=== PATIENT | female | born 1960 | race Caucasian/White ===

== ENCOUNTER 2022-10-27 12:16 | Outpatient (REF) | payer MEDICAID, SELFPAY ==
--- NOTE | ~2022-10-27 | MM_ITS ---
EXAMINATION: MM SCREENING DIGITAL BREAST TOMOSYNTHESIS, BILATERAL CLINICAL INFORMATION: Screening. Asymptomatic. The lifetime risk of breast cancer based on the Tyrer-Cuzick Model is 6%. COMPARISON: Mammography: 05/03/2018 06/15/2014, 04/10/2013, 04/04/2012 TECHNIQUE: Digital breast tomosynthesis is performed in both the craniocaudal and mediolateral oblique views along with computer-aided detection (CAD). Synthesized 2D images are generated from the tomosynthesis. FINDINGS: There are scattered areas of fibroglandular density (ACR BI-RADS breast composition Category b). There are no significant masses, abnormal calcifications, or other abnormalities. Stromal markings anterior outer left breast are stable from multiple prior exam. No developing density or interval architectural abnormality. The axilla and skin contours are unremarkable. No significant changes from prior studies. MM/MM tomosynthesis screening BI IMPRESSION: No mammographic evidence of malignancy. ASSESSMENT: BI-RADS 2: Benign RECOMMENDATION: Routine annual mammography screening. This patient's information was entered into a reminder system with a target due date for their next mammogram.
== END 2022-10-27 12:17 | disposition home or self-care (01) ==
LOC: HO.MAMMO 12:16
PROVIDERS: PCP Internal Medicine; Visit Provider Internal Medicine
DX: Z12.31 Encounter for screening mammogram for malignant neoplasm of breast (principal)
CPT/HCPCS: 77063; 77067

== ENCOUNTER → 2024-01-28 12:45 | Outpatient (BNV) | payer MEDICAID, SELFPAY | PROVIDERS: PCP Internal Medicine; Visit Provider Radiology Diagnostic Radiology | DX: Z12.31 Encounter for screening mammogram for malignant neoplasm of breast (principal) | CPT/HCPCS: 77063; 77067 ==

== ENCOUNTER 2024-01-28 12:49 | Outpatient (REF) | payer MEDICAID, SELFPAY | END 2024-01-28 12:50 | disposition home or self-care (01) | LOC: HO.MAMMO 12:49 | PROVIDERS: PCP Internal Medicine; Visit Provider Internal Medicine | DX: Z12.31 Encounter for screening mammogram for malignant neoplasm of breast (principal) | CPT/HCPCS: 77063; 77067 ==

== ENCOUNTER 2025-02-01 12:24 | Outpatient (REF) | payer MEDICAID, SELFPAY ==
--- OUTSIDE RECORDS SUMMARY | 2025-02-01 14:55 | XMS_ITS | Continuity of Care Document ---
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 Plan of Treatment Reminders Order Date Submit Date Provider Last Modified By Organization Details Last Modified Time Details Appointments PE EST 2024 10:00A M Marko Vo PA-C Not available Not available Not available Lab None recorded. Referral None recorded. Procedures None recorded. Surgeries None recorded. Imaging None recorded. Medication Orders azelastin e 0.05 % eye drops 2024 025 [id number], [address] [place], [address], 01/10/2025 13:43:06 olopatadi ne 0.2 % eye drops 2024 025 nbarrows [id number], [address] [place], [address], 01/22/2025 14:33:47 Patient TargetsNo targets recorded. Patient InstructionsNo instructions recorded. Reason for Referral None Reported. Problems Name Problem SNOMED Code Status Onset Date Resolution Date Notes Provider Name and Address Organization Details Recorded Time Acute pharyngi tis [id number] Completed 201107/09/2014 RECORDED 07/04/20 12 1:02PM BY GINA DE LA VEGA MA, ANNOTATI ON/ADDEN DUM Lillie Garrido, [facility] [address] [facility] [address], [place], [address] , [facility] 6 10:43:27 Acute sinusiti s 91347541 Completed 201107/09/2014 RECORDED 07/04/20 12 1:03PM BY GINA DE LA VEGA MA, ANNOTATI ON/ADDEN DUM Nikole Velasquez [facility], [facility] 6 15:37:50 Anxiety disorder [id number] Completed 201107/09/2014 RECORDED 07/04/20 12 1:02PM BY GINA DE LA VEGA MA, ANNOTATI ON/ADDEN DUM Lillie Garrido, [facility] [address] [facility] [address], [place], [address] , [facility] 6 10:43:27 Screenin g for malignan t neoplasm of breast Completed 201107/09/2014 RECORDED 07/04/20 12 1:03PM BY GINA DE LA VEGA MA, ANNOTATI ON/ADDEN DUM Lillie Garrido, [facility] [address] [facility] [address], [place], [address] , [facility] [place] 6 10:43:28 Localize d adiposit y 093977101 Active Not Available [facility] 1 08:45:06 Cellulit is and abscess of hand excludin g digits Completed 201107/09/2014 RECORDED 07/04/20 12 1:03PM BY GINA DE LA VEGA MA, ANNOTATI ON/ADDEN DUM Lillie Garrido, [facility] [address] [facility] [address], [place], [address] , [facility] [place] 6 10:43:27 Disorder of lower limb 701456089 Completed 201107/09/2014 RECORDED 07/04/20 12 1:03PM BY GINA DE LA VEGA MA, ANNOTATI ON/ADDEN DUM Lillie Garrido, [facility] [address] [address], [place], [address] , [facility] [place] 6 10:43:28 Neck pain 48783986 Completed [facility]/03[facility] 15:[facility] Cough 35427204 Completed 201107/09/2014 IMPRESSI ON: FROM URI. SHE REQUESTS COUGH SYRUP; RECORDED 07/04/20 12 1:02PM BY GINA DE LA VEGA MA, CHU ON/ADDEN DUM Lillie Garrido, [facility] [address] [address], [place], [address] , [facility] [place] 6 10:43:28 Tobacco dependen ce syndrome 51675645 Completed 201307/09/2014 RECORDED 01/30/20 14 10:26AM BY MICHELLE RODGERS I, CHU ON/ADDEN DUM Lillie Garrido, [facility] [address] [address], [place], [address] , [facility] [place] 6 10:43:27 Elevated blood-pr essure reading without diagnosi s of hyperten zuly 552427635 Completed 201107/09/2014 RECORDED 07/04/20 12 1:02PM BY GINA DE LA VEGA MA, CHU ON/ADDEN DUM Lillie Garrido, [facility] [address] [address], [place], [address] , [facility] [place] 6 10:43:28 Family history of ischemic heart disease 005697629 Completed 201207/09/2014 RECORDED 01/03/20 13 2:39PM BY SARAN FERNANDES MA, CHU ON/ADDEN DUM Lillie Garrido, [facility] [address] [facility] [address], [place], [address] , [facility] [place] 6 10:43:28 Adult health examinat ion Completed 201207/09/2014 RECORDED 08/14/20 13 10:10AM BY SARAN FERNANDES MA, ANNOTATI ON/ADDEN DUM Lillie Garrido, [facility] [address] [facility] [address], [place], [address] , [facility] [place] 6 10:43:28 Hyperhid rosis 804352447 Completed 201107/09/2014 RECORDED 07/04/20 12 1:02PM BY GINA DE LA VEGA MA, ANNOTATI ON/ADDEN DUM Lillie Garrido, [facility] [address] [address], [place], [address] , [facility] [place] 6 10:43:27 Malaise and fatigue 005703430 Completed 201107/09/2014 RECORDED 07/04/20 12 1:03PM BY GINA DE LA VEGA MA, CHU ON/ADDEN ASPEN Garrido, [facility] [address] [address], [place], [address] , [facility] 6 10:43:27 Acute pain 276623051 Completed 201107/09/2014 RECORDED 07/04/20 12 1:02PM BY GINA DE LA VEGA MA, ANNOTATI ON/ADDEN DUM Lillie Garrido, [facility] [address] [address], [place], [address] , [facility] [place] 6 10:43:27 Otitis media 50973437 Completed 201107/09/2014 RECORDED 07/04/20 12 1:02PM BY GINA DE LA VEGA MA, ANNOTTREMAINE ON/ADDEN DUM Lillie Garrido, [facility] [address], [place], [address] , [facility] [place] 6 10:43:27 Proteinu olayinka 06904549 Completed 201107/09/2014 RECORDED 07/04/20 12 1:03PM BY GINA DE LA VEGA MA, ANNOTATI ON/ADDEN DUM Lillie Garrido, [facility] [address], [place], [address] , [facility] [place] 6 10:43:28 Pain in thoracic spine 859173000 Completed 12/28/2016 Nikole hobbs, [facility] 7 13:18:40 Acute sinusiti s 20234162 Completed 11/03/2016 Nikole hobbs, [facility] 6 15:37:50 Allergic rhinitis 54496138 Completed 11/03/2016 Lillie Garrido, [facility] [address] [facility] [address], [place], [address] , [facility] [place] 5 11:30:56 Fatigue 29447735 Completed 11/03/2016 Nikole hobbs, [facility] 6 15:38:22 Insomnia 756251380 Active Not Available [facility] 1 08:45:07 Anxiety 36494944 Active Not Available [facility] 1 08:45:07 Lactic acidosis 67987100 Active Not Available [facility] 1 08:45:07 Acute kidney injury 07257467 Completed 12/28/2016 Nikole hobbs, [facility] 7 13:18:44 Attentio n deficit hyperact ivity disorder , predomin antly inattent tam type 73295995 Active Not Available [facility] 1 08:45:06 Eustachi an tube disorder 32177102 Completed 08/23/2019 HETAL Lynn, [facility] 9 10:26:46 Panic disorder 588997911 Completed 06/19/2020 Kaela Vo PA-C [address] [facility] [address], [place], [address] , [facility] [place] 0 09:41:16 Hematoch ezia 583905074 Active Not Available [facility] 1 08:45:06 Bilatera l hearing loss 82258808 Active Not Available [facility] 1 08:45:07 Red eye Completed 11/03/2016 Nikole hobbs, [facility] 6 15:38:26 Pain in eye 03461911 Completed 11/03/2016 Nikole hobbs, [facility] 6 15:38:09 Obesity 093663303 Active Not Available [facility] 1 08:45:06 Finding of tobacco use and exposure 131569793 Active Not Available [facility] 1 08:45:06 Ulcer of montalvo 651460393 Active Not Available [facility] 1 08:45:07 Peripher al venous insuffic iency 66248168 Active 2019 Not Available [facility] 1 08:45:07 Dysfunct ion of eustachi an tube 81419745 Active 2019 Not Available [facility] 1 08:45:06 Exposure to SARS-CoV -2 Completed 12/12/2020 Removal Reason: Problem added by user madhav de la vega from the COVID-19 watch flag HETAL Lynn, [facility] 1 14:47:30 Asthma 888600429 Active 2021 MANUEL Green [address] [facility] [address], [place], [address] , [facility] 2 15:11:37 Bronchit is 84703613 Active 2021 Lillie [facility]arrido [facility] [address] [facility] [address], [place], [address] , [facility] 2 15:18:08 Headache 23215259 Active 2021 MANUEL Green [address] [facility] [address], [place], [address] , [facility] [place] 2 15:19:43 Essentia l hyperten zuly 87605839 Active Gina hunter MA null, [facility] 3 09:34:17 Family history of Cardiova scular disease 061209932 Completed 202212/15/2023 Marko Vo PA-C [address] [facility] [address], [place], [address] , [facility] [place] 4 19:58:03 Vitreous hemorrha ge 19663953 Active 2022 Marko Vo PA-C [address] [facility] [address], [place], [address] , [facility] 3 11:56:58 Age related macular degenera tion 593314532 Active 2022 Marko Vo PA-C [address] [facility] [address], [place], [address] , [facility] [place] 3 11:57:04 Anterior chest wall pain 007786375 Active 2022 MANUEL Green [address] [facility] [address] [facility][note 2], [place], [address] , [facility] [place] 3 10:47:50 Postconc ussion syndrome 17889584 Active 2023 Marko Vo PA-C [address] [facility] [address], [place], [address] , [facility] [place] 4 19:55:49 Age related macular degenera tion 936433716 Completed 202312/15/2023 Marko Vo PA-C [address] [facility] [address], [place], [address] , [facility] [place] 4 19:57:27 CT of head abnormal 706213131 Active 2023 Marko Vo PA-C [address] [facility] [address], [place], [address] , [facility] [place] 4 12:25:44 History of SARS-CoV -2 17382556049 3081665 Active 2023 Marko Vo PA-C [address] [facility] [address], [place], [address] , [facility] [place] 4 15:24:39 Severe recurren t major depressi on without psychoti c features 58420074 Active 2023 Makenna hobbs, [facility] 4 16:32:19 Allergic rhinitis 66648457 Active 2024 MANUEL Green [address] [facility] [address], [place], [address] , [facility] [place] 5 11:30:55 Acute pharyngi tis 901123369 Completed 201106/12/2014 RECORDED 07/04/20 12 1:02PM BY GINA DE LA VEGA MA, ANNOTATI ON/ADDEN DUM MANUEL Green [address] [address], [place], [address] , [facility] 6 10:43:27 Acute sinusiti s 00173762 Completed 201106/12/2014 RECORDED 07/04/20 12 1:03PM BY GINA DE LA VEGA MA, ANNOTATI ON/ADDEN DUM Nikole hobbs, [facility] 6 15:37:50 Anxiety disorder 469408696 Completed 201106/12/2014 RECORDED 07/04/20 12 1:02PM BY GINA DE LA VEGA MA, ANNOTATI ON/ADDEN DUM Lillie Garrido, [facility] [address] [facility] [address], [place], [address] , [facility] [place] 6 10:43:27 Screenin g for malignan t neoplasm of breast Completed 201106/12/2014 RECORDED 07/04/20 12 1:03PM BY GINA DE LA VEGA MA, EFRAINATI ON/ADDEN DUM Lillie Garrido, [facility] [address] [facility] [address], [place], [address] , [facility] 6 10:43:28 Cellulit is and abscess of hand excludin g digits Completed 201106/12/2014 RECORDED 07/04/20 12 1:03PM BY GINA DE LA VEGA MA, CHU ON/ADDEN DUM Lillie Garrido, [facility] [address] [facility] [address], [place], [address] , [facility] [place] 6 10:43:27 Disorder of lower limb 418092527 Completed 201106/12/2014 RECORDED 07/04/20 12 1:03PM BY GINA DE LA VEGA MA, ANNOTATI ON/ADDEN DUM Lillie Garrido, [facility] [address] [facility] [address], [place], [address] , [facility] 6 10:43:28 Cough 03382913 Completed 201106/12/2014 IMPRESSI ON: FROM URI. SHE REQUESTS COUGH SYRUP; RECORDED 07/04/20 12 1:02PM BY GINA DE LA VEGA MA, CHU ON/ADDEN DUM Lillie Garrido, [facility] [address] [facility] [address], [place], [address] , [facility] 6 10:43:28 Tobacco dependen ce syndrome 80981492 Completed 201306/12/2014 RECORDED 01/30/20 14 10:26AM BY MICHELLE RODGERS I, CHU ON/ADDEN DUM Lillie Garrido, [facility] [address] [facility] [address], [place], [address] , [facility] [place] 6 10:43:27 Tobacco dependen ce syndrome 05269233 Active Not Available [facility] 1 08:45:07 Elevated blood-pr essure reading without diagnosi s of hyperten zuly 945748528 Completed 201106/12/2014 RECORDED 07/04/20 12 1:02PM BY GINA DE LA VEGA MA, CHU ON/ADDEN DUM Lillie Garrido, [facility] [address] [address], [place], [address] , [facility] 6 10:43:28 Essentia l hyperten zuly 12737198 Completed 08/23/2019 HETAL Lynn, [facility] 3 09:34:17 Essentia l hyperten zuly 17303837 Completed 201206/12/2014 RECORDED 01/28/20 13 10:21AM BY SARAN FERNANDES MA, OFFICE VISIT HETAL Lynn, [facility] 3 09:34:17 Family history of ischemic heart disease 415119135 Completed 201206/12/2014 RECORDED 01/03/20 13 2:39PM BY SARAN FERNANDES MA, CHU ON/ADDEN DUM Lillie Garrido, [facility] [address] [facility] [address], [place], [address] , [facility] [place] 6 10:43:28 Adult health examinat ion Completed 201206/12/2014 RECORDED 08/14/20 13 10:10AM BY SARAN FERNANDES MA, CHU ON/ADDEN DUM Lillie Garrido, [facility] [address] [address], [place], [address] , [facility] 6 10:43:28 Hyperhid rosis 647392572 Completed 201106/12/2014 RECORDED 07/04/20 12 1:02PM BY GINA DE LA VEGA MA, EFRAINATI ON/ADDEN DUM Lillie Garrido, [facility] [address] [facility] [address], [place], [address] , [facility] 6 10:43:27 Displace ment of interver tebral disc without myelopat hy 26773527 Active Not Available [facility] 1 08:45:06 Pure hypercho lesterol emia 952359156 Active Not Available [facility] 1 08:45:06 Hyperlip idemia 55298160 Active Not Available [facility] 1 08:45:07 Impaired fasting glycemia 184163265 Active Not Available [facility] 1 08:45:06 Displace ment of lumbar interver tebral disc without myelopat hy 42567036 Active Not Available [facility] 1 08:45:07 Lyme disease 85842004 Active Not Available [facility] 1 08:45:06 Malaise and fatigue 527760472 Completed 201106/12/2014 RECORDED 07/04/20 12 1:03PM BY GINA DE LA VEGA MA, CHU ON/ADDEN ASPEN Garrido, [address] [facility] [address], [place], [address] , [facility] 6 10:43:27 Acute pain 396899309 Completed 201106/12/2014 RECORDED 07/04/20 12 1:02PM BY GINA DE LA VEGA MA, CHU ON/ADDRENATE Garrido, [facility] [address] [facility] [address], [place], [address] , [facility] 6 10:43:27 Otitis media 81149945 Completed 201106/12/2014 RECORDED 07/04/20 12 1:02PM BY GINA DE LA VEGA MA, CHU ON/AGUSTIN Garrido, [facility] [address] [facility] [address], [place], [address] , [facility] 6 10:43:27 Panic disorder without agorapho neo 43105454 Active Not Available [facility] 08:45:06 Proteinu olayinka 07795708 Completed 201106/12/2014 RECORDED 07/04/20 12 1:03PM BY GINA DE LA VEGA MA, CHU ON/AGUSTIN Garrido, [facility] [address] [facility] [address], [place], [address] , [facility] 6 10:43:28 Thyrotox icosis 19466454 Active Not Available [facility] 1 08:45:06 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 Procedures Surgical History Date Name Laterality Status Provider Name and Address Organization Details Recorded Time 04/10/20 24 craniectomy completed Laura Weiss [facility] 04/10/2024 10:01:48 04/10/20 24 excision of lesion of cranium completed Laura Weiss [facility] 04/10/2024 10:02:14 04/10/20 24 cranioplasty completed Laura Weiss [facility] 04/10/2024 10:02:22 01/28/20 24 Most Recent Mammogram completed Laura Weiss [facility] 02/14/2024 09:29:28 04/15/20 23 Date of Last Pap Smear completed Laura Weiss [facility] 04/04/2024 08:34:39 07/21/20 21 Date of Last Colonoscopy completed Malena Aldair [facility] 06/20/2021 14:47:59 06/18/20 21 Colonoscopy completed Malena Aldair [facility] 06/20/2021 14:48:13 01/03/20 20 Mammogram screening completed Ruma Money [facility] 01/03/2020 16:08:31 06/29/19 98 tympanostomy completed Gina walters [place] [facility] 08/23/2019 10:36:38 11/29/18 87 Appendectomy completed Gina walters MA [facility] 07/11/2014 08:52:32 Imaging Results None recorded. Procedure Notes None recorded. Medical Equipment None Reported. Allergies Allergen ID Allergen Name Allergen Category Reaction Reaction Severity Criticality Documentation Date Start Date Code Code System Note Provider Name and Address Organization Details Recorded Time 16668 Bactrim medicatio n myalgias (muscle pain) Not available Not available 01/22/2020 30424 9 RxNorm Marko Vo PA-C [address], [place], [address], [facility] 0 11:10:56 5343 Augmentin medicatio n Not available Not available Not available 06/12/20142009 07422 2 RxNorm dehyd ratio n, ketoa cidos is -- hospi taliz ed x 3 days -- has vee ated amox her whole life Not Available [facility] 1 08:45:07 Medications Name Sig Start Date Stop Date Status Note LastModified by Organization Details LastModified Time Prescript ion - Prior Authoriza tion Request 04/28 completed Not Available Not Available Not Available cyclobenz aprine 10 mg tablet TAKE 1 TABLET 3 TIMES A DAY BY MOUTH DIRECTED FOR 10 DAYS FOR MUSCLE SPASM. 12/15 completed Not Available Not Available Not Available Augmentin 875 mg-125 mg tablet Take 1 tablet every 12 hours by oral route as directed for 10 days. 11/17 completed Not Available Not Available Not Available azelastin e 0.05 % eye drops INSTILL 1 DROP INTO AFFECTED EYE(S) BY OPHTHALM IC ROUTE 2 TIMES PER DAY 2024 active Not Available Not Available Not Avai lable prednison e 10 mg tablet 40mg x 2 days, 30mg x 2 days, 20mg x 2 days, 10mg x 2 09/20 completed Not Available Not Available Not Available doxycycli ne hyclate 100 mg capsule Take 1 capsule twice a day by oral route for 7 days. 02/21 completed Not Available Not Available Not Available nicotine 14 mg/24 hr daily transderm al patch APPLY 1 PATCH EVERY DAY 06/19 completed Not Available Not Available Not Available cetirizin e 10 mg tablet Take 1 tablet every day by oral route for 30 days. 2015 active Not Available Not Available Not Avai lable atorvasta tin 10 mg tablet TAKE 1 TABLET BY MOUTH EVERYDAY AT BEDTIME active Not Available Not Available No t Available lisinopri l 20 mg-hydroc hlorothia zide 12.5 mg tablet Take 1 tablet every day by oral route for 30 days. 04/28 completed Not Available Not Available Not Available azithromy marysol 250 mg tablet TAKE 2 TABLETS BY MOUTH TODAY, THEN TAKE 1 TABLET DAILY FOR 4 DAYS 10/27 completed Not Available Not Available Not Available alprazola m 1 mg tablet TAKE 1 TABLET BY MOUTH EVERY DAY NEEDED FOR 20 DAYS active Not Available Not Available No t Available valacyclo vir 1 gram tablet TAKE 2 TABLETS BY MOUTH EVERY 12 HOURS FOR 1 DAY 06/19 completed Not Available Not Available Not Available meloxicam 15 mg tablet TAKE 1 TABLET EVERY DAY BY MOUTH DIRECTED FOR INFLAMMA TION. 01/04 completed Not Available Not Available Not Available lisinopri l 20 mg tablet DAILY 05/16 completed RECORDED 05/16/20 10 3:07PM BY LUIS ANGEL VASQUEZ MD, ANNOTATI ON/AGUSTIN LOUISE; Not Available Not Available Not Available Medrol (Jeremy) 4 mg tablets in a dose pack Take 1 package by oral route. 12/08 completed Not Available Not Available Not Available methylphe nidate 5 mg tablet TAKE 1 TABLET BY MOUTH TWICE A DAY DIRECTED active Not Available Not Available No t Available prednison e 20 mg tablet Take 3 tablets every day by oral route for 6 days. 02/26 completed Not Available Not Available Not Available simvastat in 10 mg tablet Take 10 mg by oral route. 06/19 completed Not Available Not Available Not Available peg-elect rolyte solution 420 gram oral solution DRINK 240 ML BY MOUTH EVERY 15 MINUTES 08/01 completed Not Available Not Available Not Available tramadol 50 mg tablet Take 1 tablet every 6 hours by oral route as needed. 12/08 completed Not Available Not Available Not Available amoxicill in 500 mg tablet TWO TIMES DAILY 04/29 completed Not Available Not Available Not Available lidocaine -prilocai ne 2.5 %-2.5 % topical cream APPLY THICK LAYER TO AFFECTED LEG 2 HOURS BEFORE PROCEDUR E. LOOSELY COVER WITH PLASTIC WRAP. 01/28 completed Not Available Not Available Not Available oxycodone -acetamin ophen 5 mg-325 mg tablet THREE TIMES DAILY, NEEDED 01/13 completed RECORDED 01/28/20 13 10:21AM BY LUIS ANGEL VASQUEZ MD, MEDICATI ON AUTO-CHRIS CTIVATIO N; Not Available Not Available Not Available alprazola m 0.5 mg tablet Take 1 tablet every day by oral route for 20 days. 11/11 completed Not Available Not Available Not Available Fluticaso ne Propionat e (Inhal) 50 mcg/BLIST inhl powd DAILY 02/09 completed RECORDED 02/15/20 10 1:34PM BY REED PIKEC, MEDICATI ON AUTO-CHRIS CTIVATIO N; Not Available Not Available Not Available amoxicill in 875 mg tablet TAKE 1 TABLET BY MOUTH EVERY 12 HOURS DIRECTED FOR 7 DAYS 01/10 completed Not Available Not Available Not Available citalopra m 20 mg tablet TAKE 1 AND 1/2 TABLETS BY MOUTH ONCE DAILY active Not Available Not Available No t Available ciproflox acin 0.3 % eye drops INSTILL 1 DROP INTO AFFECTED EYE(S) BY OPHTHALM IC ROUTE EVERY 2 HOURSWHI LE AWAKE FOR 2 DAYS THEN 1 DROP EVERY 4 HRS WHILE AWAKE FOR 5 DAYS 2021 active Not Available Not Available Not Avai lable Xanax 0.25 mg tablet Take 1 tablet twice a day by oral route as needed for 30 days. 08/30 completed Not Available Not Available Not Available simvastat in 20 mg tablet TAKE 1 TABLET BY MOUTH EVERY DAY 2013 completed Not Available Not Available Not Available acyclovir 5 % topical ointment APPLY TO THE AFFECTED AREA(S) BY TOPICAL ROUTE EVERY 3 HOURS 5 TIMES PER DAY 04/28 completed Not Available Not Available Not Available neomycin- polymyxin -dexameth 3.5 mg/mL-10, 000 unit/mL-0 .1% eye drops INSTILL 2 DROPS IN AFFECTED EYE 3 TIMES A DAY FOR 10 DAYS 12/31 completed Not Available Not Available Not Available lisinopri l 5 mg tablet Take 5 mg by oral route. 02/21 completed Not Available Not Available Not Available lisinopri l 10 mg-hydroc hlorothia zide 12.5 mg tablet TAKE 1 TABLET BY MOUTH EVERY DAY 2024 active Not Available Not Available Not Avai lable ibuprofen 600 mg tablet TAKE 1 TABLET BY MOUTH THREE TIMES A DAY NEEDED active Not Available Not Available No t Available levofloxa marysol 500 mg tablet Take 1 tablet every day by oral route with meals for 7 days. 09/20 completed Not Available Not Available Not Available fluticaso ne propionat e 50 mcg/actua tion nasal spray,[facility] [employer] SPRAY 1 SPRAY INTO EACH NOSTRIL EVERY DAY 10/27 completed Not Available Not Available Not Available doxycycli ne hyclate 100 mg tablet TAKE 1 TABLET BY MOUTH TWICE A DAY FOR 10 DAYS 01/28 completed Not Available Not Available Not Available loratadin e 10 mg tablet TAKE 1 TABLET BY MOUTH EVERY DAY DIRECTED active Not Available Not Available No t Available nicotine 7 mg/24 hr daily transderm al patch Apply 1 patch every day by transder mal route. 06/19 completed Not Available Not Available Not Available oxycodone 5 mg tablet 01/28 completed Not Available Not Available Not Available Bactrim DS 800 mg-160 mg tablet Take 1 tablet every 12 hours by oral route for 7 days. 02/21 completed Not Available Not Available Not Available Ritalin LA 20 mg capsule,e xtended release Take 1 capsule 3 times a day by oral route as directed . completed Not Available Not Available Not Available Zithromax TRI-JEREMY 500 mg tablet Take 1 tablet every day by oral route for 3 days. 07/14 completed Not Available Not Available Not Available Guiatuss EVERY 4 HRS NEEDED FOR COUGH 04/26 completed RECORDED 04/30/20 12 10:47AM BY WINDY ENRIQUEZ, MEDICATI ON AUTO-CHRIS CTIVATIO N;CAUTIO N DROWSINE SS Not Available Not Available Not Available Chantix Starting Month Jeremy 0.5 mg (11)-1 mg (42) tablets in dose pack 09/10 completed RECORDED 09/10/20 11 11:46AM BY SU MENA MA, OFFICE VISIT; DIRECTED Not Available Not Available Not Available ProAir HFA 90 mcg/actua tion aerosol inhaler Inhale 2 puffs every 4-6 hours by inhalati on route as needed for 16 days. active Not Available Not Available No t Available olopatadi ne 0.2 % eye drops INSTILL 1 DROP INTO AFFECTED EYE(S) BY OPHTHALM IC ROUTE ONCE DAILY 2024 active Not Available Not Available Not Avai lable Gavilyte- C 240 gram-22.7 2 gram-6.72 gram-5.84 gram oral solution USE DIRECTED PRIOR TO COLONOSC OPY 08/01 completed Not Available Not Available Not Available Vitals Date Recorded Body height Body mass index (BMI) Body weight Heart rate Oxygen saturation Oxygen saturation in Arterial blood by Pulse oximetry Body temperature Systolic blood pressure Diastolic blood pressure Provider Name and Address Organization Details Last Updated DateTime 5 157.48 cm 27.8 kg/m2 42835.0 4 g 76 /min 96 % 96 % 97.8 [degF] 127 mm[Hg] 80 mm[Hg] Bri vaz MA MD - [facility] [place] 5 13:11:44 Social History Question Answer Notes LastModified by Organizat ion Details LastModified Time Tobacco Smoking Status Current Every Day Smoker has tried nicotine gum in past HETAL Akhtar, [facility] 08/23/2019 10:35:01 Do You Have An Advance Directive? No Information not available 04/28/2018 What Is Your Level Of Alcohol Consumption? Occasional Socially Information not available 08/23/2019 Is Blood Transfusion Acceptable In An Emergency? Yes Information not available 02/12/2021 What Is Your Level Of Caffeine Consumption? None Information not available 04/28/2018 How Much Tobacco Do You Chew? None Information not available 04/28/2018 Are You Currently Employed? No Information not available 04/28/2018 What Type Of Diet Are You Following? REGULAR Information not available 07/11/2014 Which Illicit Or Recreational Drugs Have You Used? Marijuana Information not available 08/23/2019 Do You Or Have You Ever Used E-cigarettes Or Vape? 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 With Others Daughter (Justyna) [email or web address] Information not available 01/27/2016 Do You Take Precautions To Prevent Distracted Driving? Yes Information not available 08/23/2019 How Often Do You Need To Have Someone Help You When You Read Instructions, Pamphlets, Or Other Written Material From Your Doctor Or Pharmacy? Never Information not available 08/23/2019 Have You Served In The ? No Information not available 08/23/2019 Have You Or Anyone In Your Household Had Any Of The Following Symptoms In The Last 14 Days: Sore Throat, Cough, Chills, Body Aches For Unknown Reasons, Shortness Of Breath For Unknown Reasons, Loss Of Smell, Loss Of Taste, Fever At Or Greater Than 100 Degrees Fahrenheit? No Information not available 01/31/2021 Are You Or Anyone In Your Household A Health Care Provider Or Emergency Responder? No Information not available 06/19/2020 To The Best Of Your Knowledge Have You Been In Close Proximity To Any Individual Who Tested Positive For COVID-19? No Information not available 01/31/2021 *AWV ONLY* Are You Presently Prescribed Opioid Medication By PCP Or Specialist? If YES -Provider Assess The Benefit For Other, Non-opioid Pain Therapies Instead, Even If The Patient Does Not Have OUD But Is Possibly At Risk. No Information not available 02/12/2021 Have You Recently Traveled To A COVID-19 High Risk Area Or Gathering In The Last 10 Days? No Information not available 01/31/2021 What Was The Date Of Your Most Recent Tobacco Screening? 04/03/2024 [email or web address] Information not available 04/03/2024 How Many Children Do You Have? 2 Justyna And Anival Information not available 04/28/2018 What Is Your Current Pack Years? 30ormorepacky ears Information not available 02/12/2021 Seat Belts Used Routinely Yes Information not available 08/23/2019 Smoke Alarm In Home Yes Information not available 04/28/2018 At What Age Did You Start Smoking Tobacco? 16 Long Time Information not available 08/23/2019 Are You Passively Exposed To Smoke? Yes Information not available 04/28/2018 Do You Or Have You Ever Used Smokeless Tobacco? Never Used Smokeless Tobacco Information not available 08/23/2019 How Much Tobacco Do You Smoke? 0.25 PPD Information not available 06/19/2020 Do You Use Any Illicit Or Recreational Drugs? No Information not available 04/01/2023 Do You Use Sunscreen Routinely? Yes Information not available 02/12/2021 How Many Years Have You Smoked Tobacco? 44 Information not available 06/19/2020 Do You Or Have You Ever Used Any Other Forms Of Tobacco Or Nicotine? No Information not available 04/01/2023 Sex: Unknown Functional Status Question Answer Note LastModified by Organizat ion Details LastModified Time Are you able to walk? YESWOREST Information not available 04/01/2023 Are you able to care for yourself? Yes Information not available 07/11/2014 What is your exercise level? Occasional Information not available 04/28/2018 Mental Status None recorded. Family History Relationship Description Onset Age of this Age Resolved Age Notes LastModified by Organization Details LastModified Time Father Myocardial infarction 45 60 [email or web address] Not available 11/07 10:56:17 Father Essential hypertension [email or web address] Not available 01/27/2016 17:02:06 Mother Primary malignant neoplasm of urinary bladder 75 [email or web address] Not available 17:02:06 Mother Essential hypertension [email or web address] Not available 01/27/2016 17:02:06 Brother Myocardial infarction 57 [email or web address] Not available 17:02:06 Brother Essential hypertension mdalessandro Not available 01/27/2016 17:02:06 Brother Coronary arterioscler osis mdalessandro Not available 17:02:06 Sister Essential hypertension mdalessandro Not available 01/27/2016 17:02:06 Sister Coronary arterioscler osis mdalessandro Not available 17:02:06 Medical History Condition Response Anxiety Disorder Y Hypertension Y Depression Y High Cholesterol Y Gynecological History Statement/Question Response Date of Last Pap Smear 04/15/2023 Date of Last Colonoscopy 06/18/2021 Most Recent Mammogram 01/28/2024 Obstetrics History GPAL:G 0 P 0 0 0 0 Immunizations Vaccine Type Date Status Note Provider Name and Address Organization Details Recorded Time COVID-19, mRNA, LNP-S, PF, 100 mcg/0.5mL dose or 50 mcg/0.25mL dose 05/07/20 21 completed [facility] 08/18/2022 10:30:17 COVID-19, mRNA, LNP-S, PF, 100 mcg/0.5mL dose or 50 mcg/0.25mL dose 04/07/20 21 completed HETAL [facility] [place] 08/18/2022 10:30:17 COVID-19, mRNA, LNP-S, PF, 100 mcg/0.5mL dose or 50 mcg/0.25mL dose 04/07/20 21 completed HETAL Eugene, [facility] 11/10/2022 13:08:16 Tdap 05/30/20 18 completed HETAL Sun, [facility] 08/18/2022 10:30:17 Influenza, split virus, quadrivalent, PF 12/28/19 17 completed HETAL Sun, [facility] 08/18/2022 10:30:17 COVID-19, mRNA, LNP-S, PF, 100 mcg/0.5mL dose or 50 mcg/0.25mL dose 04/07/20 21 completed HETAL [place], [facility] 11/10/2022 13:08:16 Td (adult), 2 Lf tetanus toxoid, preservative free, adsorbed 06/28/20 07 completed HETAL Crooks, [facility] 05/09/2021 13:31:44 Influenza, split virus, quadrivalent, PF 02/13/20 21 cancelled patient objection Marko Vo PA-C [id number], [address], [facility] [place] 02/12/2021 16:19:58 Past Encounters Encounter ID Performer Location Encounter Start Date Encounter Closed Date Diagnosis/Indication Diagnosis SNOMED-CT Code Diagnosis ICD10 Code Diagnosis Note [id number] Makenna Gaston Main Office [address] [id number] 01/10/2025 12:58:33 01/10/2025 13:35:44 Acute conjunctivitis 29028549 H10.30 -Will send ming alvarado script cancelled. -Warm compress advised.-A dvised regular follow up with optho. Pterygium of right eye 2343891297 H11.001 Advised regular follow up with optho. Subconjunc tival hemorrhage of right eye 7417694433 H11.31 Avoid anything that increases pressure. Health Concerns Section Related Observation LastModified by Organization Detai ls LastModified Time None Recorded Concern Status LastModified by Organization Details LastModified Time None Recorded Payers Encounter Date Sequence Insurance Name Policy Number Policy Jeffrey Covered Member ID Jeffrey Member ID Guarantor Name 01/10/2025 1 MEDICAID-[place]: [facility] Lia Bustos [id number] Lia Silviaromeo Notes Date Note Type Note Provider Name and Address Organization Details Recorded Time 01/10/2025 text/html Red EyeReported bypatient.Location :right Quality:itching Duration:3 days ago Onset/Timing:first episode Associated Symptoms:normal vision; no sensitivity to light; no eye pain; no foreign body sensation in eyes; no mucopurulent discharge;watery discharge from the eyes Makenna hobbs [facility] 01/22/2025 14:33:50 OBGyn Episode No OBEpisode recorded.
--- OUTSIDE RECORDS SUMMARY | 2025-02-01 14:55 | XMS_ITS | Data Portability ---
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 Patient consented to telephone visit Patient was located in the [facility]. Provider was located in the office. No other persons participated in the telemedicine visit except for the patient unless otherwise indicated here. {{}} Total time of visit was 23 minutes. pmadden Not available 07/11/2024 15:20:34 10/05/2024 10/05/2024 This service was provided using telemedicine. Patient consented to video & audio visit Patient was located in the [facility]. Provider was located in the office. No other persons participated in the telemedicine visit except for the patient unless otherwise indicated here. {{}} Total time of visit was 10 minutes. [email or web address] Not available 10/05/2024 15:16:34 Plan of Treatment Reminders Order Date Submit Date Provider Last Modified By Organization Details Last Modified Time Details Appointments PE EST 2024 10:00A M Josue Vo PA-C Not available Not available Not available Lab HbA1c (hemog lobin A1c), blood 2023 024 [facility] (Centralized Electronic Ordering - All Locations), Patient Can Go To The Location Of Their Choice, 07/12/2024 14:06:59 vitami n D, 25-hyd brian, total, serum 2023 024 [facility], [address], [place], [address], 07/12/2024 14:06:59 TSH, ultra- sensit tam, serum 2023 024 [facility] (Centralized Electronic Ordering - All Locations), Patient Can Go To The Location Of Their Choice, 07/12/2024 14:07:00 CBC w/ auto diff 2023 024 [facility] (Centralized Electronic Ordering - All Locations), Patient Can Go To The Location Of Their Choice, 07/12/2024 14:06:57 CMP, serum or plasma 2023 024 [facility] (Centralized Electronic Ordering - All Locations), Patient Can Go To The Location Of Their Choice, 07/12/2024 14:06:58 CMP, serum or plasma 2023 024 [email or web address] [facility] (Centralized Electronic Ordering - All Locations), Patient Can Go To The Location Of Their Choice, 11/01/2024 17:15:45 lipid panel, serum 2023 024 [email or web address] [facility] (Centralized Electronic Ordering - All Locations), Patient Can Go To The Location Of Their Choice, 11/01/2024 17:15:32 HbA1c (hemog lobin A1c), blood 2023 024 [email or web address] [facility] (Centralized Electronic Ordering - All Locations), Patient Can Go To The Location Of Their Choice, 11/01/2024 17:15:14 vitami n D, 25-hyd brian, total, serum 2023 024 [email or web address] [facility], [address], [place], [address], 07/03/2024 08:55:25 Referral psychi atrist referr al - Medica tion consul tation with Reggie Staples MD 2023 024 alba Staples MD, [address] [place], [address], 08/04/2024 16:33:14 nutrit ionist /dieti lupe referr al 2023 024 [email or web address] Not available 04/03/2024 12:08:11 Procedures None record ed. Surgeries None record ed. Imaging XR, chest, 2 view 2023 024 [facility] (Radiology), [address] [place], [address], 07/11/2024 16:46:59 LDCT, chest, for lung cancer screen ing - -The fani loomis does not have lung cancer or signs of lung cancer at this time.- Fani loomis has not had a chest CT in the last 12 months . *SHARE D DECISI ON MAKING *I have discus sed the benefi ts and risks of lung cancer screen ing in compli ance with [facility] shared decisi on making guidel сергей includ ing early detect ion, radiat ion exposu re, false negati ve rates, false positi ve rates, over-d iagnos is, incide ntal findin gs, impact of comorb iditie s and the abilit y or willin gness to underg o diagno sis and treatm ent if someth ing concer holden is found. I have review ed with the fani t the import ance of abstin ence if a former smoker , and import ance of smokin g cessat ion if a curren t smoker . I have furnis hed the fani t with inform ation and resour michelle availa ble to quit smokin g if approp riate. 2023 024 cristino [facility], [address] [place], [address], 10/23/2024 10:07:29 Medication Orders azelas jason 0.05 % eye drops 2024 025 [facility]0859, [address] [place] [address], [address], 01/10/2025 13:43:06 olopat adine 0.2 % eye drops 2024 025 [email or web address] [address] [place] [address], [address], 01/22/2025 14:33:47 doxycy jimenez hyclat e 100 mg tablet 2023 024 [facility], [address] [place] [address], [address], 10/06/2024 16:23:53 atorva statin 10 mg tablet 2023 024 [facility] [address] [place] [address], [address], 07/13/2024 14:25:36 methyl phenid ate 5 mg tablet 2023 024 [facility] [address] [place] [address], [address], 07/13/2024 14:31:52 alpraz olam 1 mg tablet 2023 024 [facility], [address] [place] [address], [address], 04/03/2024 11:33:13 methyl phenid ate 5 mg tablet 2023 024 [facility], [address] [place] [address], [address], 04/03/2024 11:33:14 methyl phenid ate 5 mg tablet 2023 024 [facility], [address] [place] [address], [address], 04/03/2024 11:33:12 methyl phenid ate 5 mg tablet 2023 024 [facility]1753, [address] [facility], [place], [address], 04/03/2024 11:33:12 Patient Targets Encounter Date Encounter Id Patient Goals Patient Target Last Modified By Organization Details Last Modified Time 04/03/2024 [id number] 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 goal of Blood Pressure 140 / 90 Not available Not available Not available [facility] goal of Exercise level Not available Not available Not available [facility] goal of Tobacco Smoking Status Not available Not available Not available 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 goal of Excess Body Weight Loss % 5 Not available Not available Not available Ongoing of LDL Direct <100 Not available Not available Not available Ongoing of LDL Direct yearly Not available Not available Not available Pt advised and agrees to work on self-monitoring behaviors; begin an appropriate diet for weight loss (such as a low carbohydrate diet), to do moderate exercise (such as walking) for approximately 150 minutes per week; and to identify desirable and timely rewards that will reinforce achievement of specific weight loss goals.Pt advised and agrees to eat a low salt low fat diet; to do moderate exercise (such as walking) 150 minutes per week; to limit alcohol intake (goal of 2 drinks per day or less for men or 1 for woman). and to monitor dietary sodium. Will monitor home blood pressures and bring readings to appointments. Patient preferences and goals incorporated in plan and updated/modified as needed to reflect progress toward goal.Pt agrees to follow low fat diet, avoid saturated fats , decrease carbohydrate intake to 45 - 50 gm per meal , pt agrees to develop a regular pattern of exercise such as walking 30 minutes a day 3 times a week, Pt will keep a record of exercise and activity level Patient preferences and goals incorporated in plan and updated/modified as needed to reflect progress toward goal. pmadden Not available 04/03/2024 11:18:44 Patient Instructions Encounter Date Encounter Id Patient Instructions Last Modified By Organization Details Last Modified Time 04/03/2024 [id number] A healthy lifestyle: care instructions pmadden Not available 04/03/2024 11:33:05 well visit, women 50 to 65: care instructions pmadden Not available 04/03/2024 11:33:05 When You Want to Lose Weight: Care Instructions pmadden Not available 04/03/2024 11:33:05 Nutrition Referral and Weight Management Follow-up Information pmadden Not available 04/03/2024 11:33:04 learning about lung cancer screening pmadden Not available 04/03/2024 11:33:05 Medications (OTC, herbal therapies, supplements) reviewed and reconciled with patient and or caregiver, including potential side effects, drug interactions, instructions, and the consequences of not taking medication. Reviewed potential barriers to medication adherence, such as side effects from medication or cost of medication. pmadden Not available 04/03/2024 11:04:08 07/11/2024 [id number] Medications (OTC, herbal therapies, supplements) reviewed and reconciled with patient and or caregiver, including potential side effects, drug interactions, instructions, and the consequences of not taking medication. Reviewed potential barriers to medication adherence, such as side effects from medication or cost of medication. pmadden Not available 07/11/2024 15:24:39 07/13/2024 [id number] Medications (OTC, herbal therapies, supplements) reviewed and reconciled with patient and or caregiver, including potential side effects, drug interactions, instructions, and the consequences of not taking medication. Reviewed potential barriers to medication adherence, such as side effects from medication or cost of medication. 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) [address] [facility], [place], [address], 07/12/2024 14:06:57 07/11/20 24 07/12/2024 CBC WITH DIFFE RENTI AL/PL ATELE T RBC 4.28 x10e6 /uL 3.77-5 .28 normal Not Available [facility] ([facility]) [address] [facility], [place], [address], 07/12/2024 14:06:57 07/11/20 24 07/12/2024 CBC WITH DIFFE RENTI AL/PL ATELE T hemoglobin 14.1 g/dL 11.1-1 5.9 normal Not Available [facility] ([facility]) [address] [place], [address], 07/12/2024 14:06:57 07/11/20 24 07/12/2024 CBC WITH DIFFE RENTI AL/PL ATELE T hematocrit 42.5 % 34.0-4 6.6 normal Not Available [facility] ([facility]) [address] [place], [address], 07/12/2024 14:06:57 07/11/20 24 07/12/2024 CBC WITH DIFFE RENTI AL/PL ATELE T MCV 99 fL 79-97 above high normal Not Available [facility] ([facility]) [address] [place], [address], 07/12/2024 14:06:57 07/11/20 24 07/12/2024 CBC WITH DIFFE RENTI AL/PL ATELE T MCH 32.9 pg 26.6-3 3.0 normal Not Available [facility] ([facility]) [address] [place], [address], 07/12/2024 14:06:57 07/11/20 24 07/12/2024 CBC WITH DIFFE RENTI AL/PL ATELE T MCHC 33.2 g/dL 31.5-3 5.7 normal Not Available [facility] ([facility]) [address] [place], [address], 07/12/2024 14:06:57 07/11/20 24 07/12/2024 CBC WITH DIFFE RENTI AL/PL ATELE T RDW 12.9 % 11.7-1 5.4 Not Available [facility] ([facility]) [address] [facility], [place], [address], 07/12/2024 14:06:57 07/11/20 24 07/12/2024 CBC WITH DIFFE RENTI AL/PL ATELE T platelets 191 x10e3 /uL 150-45 0 normal Not Available [facility] ([facility]) [address] [facility], [place], [address], 07/12/2024 14:06:57 07/11/20 24 07/12/2024 CBC WITH DIFFE RENTI AL/PL ATELE T neutrophils 69 % not estab. normal Not Available [facility] ([facility]) [address] [facility], [place], [address], 07/12/2024 14:06:57 07/11/20 24 07/12/2024 CBC WITH DIFFE RENTI AL/PL ATELE T lymphs 23 % not estab. normal Not Available [facility] ([facility]) [address] [facility], [place], [address], 07/12/2024 14:06:57 07/11/20 24 07/12/2024 CBC WITH DIFFE RENTI AL/PL ATELE T monocytes 6 % not estab. normal Not Available [facility] ([facility]) [address] [facility], [place], [address], 07/12/2024 14:06:57 07/11/20 24 07/12/2024 CBC WITH DIFFE RENTI AL/PL ATELE T eos 2 % not estab. normal Not Available [facility] ([facility]) [address] [facility], [place], [address], 07/12/2024 14:06:57 07/11/20 24 07/12/2024 CBC WITH DIFFE RENTI AL/PL ATELE T basos 0 % not estab. normal Not Available [facility] (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) [address] [place], [address], 07/12/2024 14:06:57 07/11/20 24 07/12/2024 CBC WITH DIFFE RENTI AL/PL ATELE T neutrophils (absolute) 4.3 x10e3 /uL 1.4-7. 0 normal Not Available [facility] ([facility]) [address] [place], [address], 07/12/2024 14:06:57 07/11/20 24 07/12/2024 CBC WITH DIFFE RENTI AL/PL ATELE T lymphs (absolute) 1.5 x10e3 /uL 0.7-3. 1 normal Not Available [facility] ([facility]) [address] [place], [address], 07/12/2024 14:06:57 07/11/20 24 07/12/2024 CBC WITH DIFFE RENTI AL/PL ATELE T monocytes(ab solute) 0.4 x10e3 /uL 0.1-0. 9 normal Not Available [facility] ([facility]) [address] [place], [address], 07/12/2024 14:06:57 07/11/20 24 07/12/2024 CBC WITH DIFFE RENTI AL/PL ATELE T eos (absolute) 0.1 x10e3 /uL 0.0-0. 4 normal Not Available [facility] ([facility]) [address] [place], [address], 07/12/2024 14:06:57 07/11/20 24 07/12/2024 CBC WITH DIFFE RENTI AL/PL ATELE T baso (absolute) 0.0 x10e3 /uL 0.0-0. 2 normal Not Available [facility] ([facility]) [address] [facility], [place], [address], 07/12/2024 14:06:57 07/11/20 24 07/12/2024 CBC WITH DIFFE RENTI AL/PL ATELE T immature granulocytes 0 % not estab. Not Available [facility] ([facility]) [address] [facility], [place], [address], 07/12/2024 14:06:57 07/11/20 24 07/12/2024 CBC WITH DIFFE RENTI AL/PL ATELE T immature grans (abs) 0.0 x10e3 /uL 0.0-0. 1 Not Available [facility] (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) [address] [facility], [place], [address], 07/12/2024 14:06:57 07/11/20 24 07/12/2024 CBC WITH DIFFE RENTI AL/PL ATELE T hematology comments: SULFUR CHLORIDE OPERATOR Not Available [facility] ([facility]) [address] [facility], [place], [address], 07/12/2024 14:06:57 07/11/20 24 07/12/2024 COMP. METAB OLIC PANEL (14) glucose 120 mg/dL 70-99 above high normal Not Available [facility] ([facility]) [address] [facility], [place], [address], 07/12/2024 14:06:58 07/11/20 24 07/12/2024 COMP. METAB OLIC PANEL (14) BUN 16 mg/dL 8-27 normal Not Available [facility] ([facility]) [address] [facility] [place], [address], 07/12/2024 14:06:58 07/11/20 24 07/12/2024 COMP. METAB OLIC PANEL (14) creatinine 0.73 mg/dL 0.57-1 .00 normal Not Available [facility] ([facility]) [address] [facility] [place], [address], 07/12/2024 14:06:58 07/11/20 24 07/12/2024 COMP. METAB OLIC PANEL (14) eGFR 92 mL/mi n/1.7 3 >59 normal Not Available [facility] ([facility]) [address] [facility], [place], [address], 07/12/2024 14:06:58 07/11/20 24 07/12/2024 COMP. METAB OLIC PANEL (14) BUN/creatini ne ratio 22 12-28 normal Not Available [facility] ([facility]) [address] [facility] [place], [address], 07/12/2024 14:06:58 07/11/20 24 07/12/2024 COMP. METAB OLIC PANEL (14) sodium 142 mmol/ L 134-14 4 normal Not Available [facility] ([facility]) [address] [facility] [place], [address], 07/12/2024 14:06:58 07/11/20 24 07/12/2024 COMP. METAB OLIC PANEL (14) potassium 3.8 mmol/ L 3.5-5. 2 normal Not Available [facility] ([facility]) [address] [facility] [place], [address], 07/12/2024 14:06:58 07/11/20 24 07/12/2024 COMP. METAB OLIC PANEL (14) chloride 104 mmol/ L 96-106 normal Not Available [facility] ([facility]) [address], [place], [address], 07/12/2024 14:06:58 07/11/20 24 07/12/2024 COMP. METAB OLIC PANEL (14) carbon dioxide, total 24 mmol/ L 20-29 normal Not Available [facility] ([facility]) [address], [place], [address], 07/12/2024 14:06:58 07/11/20 24 07/12/2024 COMP. METAB OLIC PANEL (14) calcium 9.3 mg/dL 8.7-10 .3 normal Not Available [facility] ([facility]) [address], [place], [address], 07/12/2024 14:06:58 07/11/20 24 07/12/2024 COMP. METAB OLIC PANEL (14) protein, total 6.6 g/dL 6.0-8. 5 normal Not Available [facility] ([facility]) [address] [place], [address], 07/12/2024 14:06:58 07/11/20 24 07/12/2024 COMP. METAB OLIC PANEL (14) albumin 4.2 g/dL 3.9-4. 9 normal Not Available [facility] ([facility]) [address] [place], [address], 07/12/2024 14:06:58 07/11/20 24 07/12/2024 COMP. METAB OLIC PANEL (14) globulin, total 2.4 g/dL 1.5-4. 5 Not Available [facility] ([facility]) [address] [place], [address], 07/12/2024 14:06:58 07/11/20 24 07/12/2024 COMP. METAB OLIC PANEL (14) bilirubin, total 0.4 mg/dL 0.0-1. 2 normal Not Available [facility] ([facility]) [address] [place], [address], 07/12/2024 14:06:58 07/11/20 24 07/12/2024 COMP. METAB OLIC PANEL (14) alkaline phosphatase 67 IU/L 44-121 normal Not Available [facility]) [address] [place], [address], 07/12/2024 14:06:58 07/11/20 24 07/12/2024 COMP. METAB OLIC PANEL (14) AST (SGOT) 18 IU/L 0-40 normal Not Available [facility] ([facility]) [address] [place], [address], 07/12/2024 14:06:58 07/11/20 24 07/12/2024 COMP. METAB OLIC PANEL (14) ALT (SGPT) 15 IU/L 0-32 normal Not Available [facility] ([facility]) [address] [place], [address], 07/12/2024 14:06:58 07/11/20 24 07/12/2024 HEMOG LOBIN A1C hemoglobin A1C 5.2 % 4.8-5. 6 normal Predi abete s: 5.7 - 6.4 Diabe radha: >6.4 Glyce maurice contr ol for adult s with diabe radha: <7.0 Not Available [facility] ([facility]) [address] [place], [address], 07/12/2024 14:06:59 07/11/20 24 07/12/2024 VITAM IN D, 25-HY DROXY vitamin D, 25-hydroxy 33.7 NG/mL 30.0-1 00.0 Vitam in D defic iency has been defin ed by the Insti tute of Medic ine and an Endoc rine Socie ty pract ice guide line as a level of serum 25-OH vitam in D less than 20 ng/mL (1,2) . The Endoc rine Socie ty went on to er defin e vitam in D insuf ficie ncy as a level betwe en 21 and 29 ng/mL (2). 1. IOM (Inst itute of Medic ine). 2010. Dieta ry refer ence intak es for calci um and D. Swati littlejohn [place]: The [facility] . 2. Holdesean k MF, Binkl ey [place], Bisch off-F errar i BURROWS, et al. Evalu ation , treat ment, and preve ntion of vitam in D defic iency : an Endoc rine Socie ty clini wei pract ice guide line. JCEM. 2010; 96(7) :1911 -30. Not Available [facility] ([facility]) [address] [facility], [place], [address], 07/12/2024 14:06:59 07/11/20 24 07/12/2024 TSH RFX ON ABNOR MAL TO FREE T4 TSH 1.190 uIU/m L 0.450- 4.500 normal Not Available [facility] ([facility]) [address] [facility], [place], [address], 07/12/2024 14:07:00 04/26/20 24 04/26/2024 CT chest ldct lung progr am basel ine CT Chest LDCT Lung Progra m Baseli ne Reason : Other: ; LDCT LUNG CANCER SCREEN ING PROGRA M, CHARLES T SMOKER , 30 PACK YEAR HX; Clinic al Questi on(s): Other: ; Specia l Instru ctions : BOOK AT [address] [facility], [place], [place] BOOK AFTER [address] IN THE LAST 12 MONTHS NO LUNG CA OR SIGNS AND SYMPTO MS OF LUNG CA Visit type: Baseli ne TECHNI QUE: Low-do se helica l CT of the chest withou t IV contra st (Adult Lung Cancer Screen ing) protoc ol was perfor med. Ramos l reform ats were obtain ed. Weight -based protoc ol using automa tic tube modula tion was used to optimi ze exposu re parame ters. COMPAR REBA: None FINDIN GS: LUNG NODULE S (measu red on thin axial series 4): RIGHT lung: A few scatte red 2 to 3 mm nodule s are noted. For exampl e 2 mm right upper lobe nodule on image 35 series 4. LEFT lung: There is a 2 mm subple ural left upper lobe nodule on image 126. OTHER FINDIN GS: Ink Grinder view findin gs, lines and tubes: None. Trache a and airway s: Patent withou t eviden ce of trache al or endobr onchia l lesion . Lungs and pleura : Clear lungs. No effusi on or pneumo thorax . Mild centri lobula r emphys dannie. Medias tinum and liz: No mass or hemato ma. No medias tinal or hilar lympha denopa thy. No esopha geal abnorm ality. Normal thyroi d. Heart: Heart is normal in size. No perica rdial effusi on. No ramos ry arteri al calcif icatio ns. Aorta: Mild vascul ar calcif icatio n but no aneury sm. Pulmon mary carmen arteri es: Normal calibe r. Chest wall soft tissue s: No acute abnorm ality. Diaphr agm: Intact . Upper abdome n: Round hypode nsitie s consis tent with cysts scatte red throug hout the liver. Bones: No acute abnorm ality. IMPRES ZULY: 1. Small 2 to 3 mm nodule s in both lungs. LungRa d Catego ry: 2 Benign Appear ance or Behavi or. Nodule s with a very low likeli obrien of becomi ng a clinic ally active cancer due to size or lack of growth . Contin ue annual screen ing with LDCT in 12 months . 2. No signif icant additi onal findin gs requir ing furthe r evalua tion. Lung-R AD Catego ry Modifi er: None. Catego rizati on based on Lung-R ADS 2021 criter ia. [email or web address]: [email or web address] [email or web address] WSN: [id number] Orderi ng Physic alejandro: Jaden Vo Dictat ed By: Victoriano YIN, Sawyer Harmon Dictat ed Date/T karlo: 2:57 pm Review ed By: Sawyer Pastrana MD Signed By: Sawyer Pastrana MD Signed Date/T karlo: 2:57 pm Transc ribed By: EVELINA Transc ribed Date/T karlo: 2:47 pm Patien t Class: Outpat ient [facility] (Outpt Imaging) [address] [place], [address], 05/10/2024 08:45:48 07/11/20 24 07/11/2024 XR, chest , 2 view Chest 2 Views Fronta l and Lat Reason : cough COMPAR REBA: Multip le prior chest radiog raphs with the most recent dated 023. FINDIN GS: LINES AND TUBES: None. LUNGS AND PLEURA : Clear lungs. Normal pulmon mary carmen vascul arity. No pleura l effusi on. No pneumo thorax . HEART, MEDIAS TINUM AND LIZ: Heart is normal in size. Normal medias tinal and hilar contou r. BONES AND SOFT TISSUE S: No acute abnorm ality. IMPRES ZULY: No acute abnorm ality. WSN: [id number] Orderi ng Physic alejandro: Jaden Vo Dictat ed By: Fitz Nelson MD, V Dictat ed Date/T karlo: 4:25 pm Review ed By: Fitz Nelson MD, V Signed By: Fitz Nelson MD, V Signed Date/T karlo: 4:25 pm Transc ribed By: EVELINA Transc ribed Date/T karlo: 4:25 pm Patien t Class: Outpat ient [facility] (Outpt Imaging) [address] [place], [address], 07/25/2024 09:07:28 Result Notes None recorded. Problems Name Problem SNOMED Code Status Onset Date Resolution Date Notes Provider Name and Address Organization Details Recorded Time Acute pharyngi tis 371342305 Completed 201107/09/2014 RECORDED 07/04/20 12 1:02PM BY MARIELA DE LA VEGA MA, ANNOTATI ON/ADDEN DUM Lillie Garrido, [facility] [address] [facility] [address], [place], [address] , [facility] 6 10:43:27 Acute sinusiti s 75779639 Completed 201107/09/2014 RECORDED 07/04/20 12 1:03PM BY MARIELA DE LA VEGA MA, ANNOTATI ON/ADDEN DUM [facility] [place] 6 15:37:50 Anxiety disorder 043263633 Completed 201107/09/2014 RECORDED 07/04/20 12 1:02PM BY MARIELA DE LA VEGA MA, ANNOTATI ON/ADDEN DUM Lillie Garrido, [facility] [address] [facility] [address], [place], [address] , [facility] 6 10:43:27 Screenin g for malignan t neoplasm of breast Completed 201107/09/2014 RECORDED 07/04/20 12 1:03PM BY MARIELA DE LA VEGA MA, ANNOTATI ON/ADDEN DUM Lillie Garrido, [facility] [address] [facility] [address], [place], [address] , [facility] 6 10:43:28 Localize d adiposit y 546638125 Active Not Available [facility] 1 08:45:06 Cellulit is and abscess of hand excludin g digits Completed 201107/09/2014 RECORDED 07/04/20 12 1:03PM BY MARIELA DE LA VEGA MA, ANNOTATI ON/ADDEN DUM Lillie Garrido, [facility] [address] [facility] [address], [place], [address] , [facility] 6 10:43:27 Disorder of lower limb 370364084 Completed 201107/09/2014 RECORDED 07/04/20 12 1:03PM BY MARIELA DE LA VEGA MA, EFRAINATI ON/ADDEN ASPEN Garrido, [facility] [address] [address], [place], [address] , [facility] 6 10:43:28 Neck pain 03264833 Completed 11/03/2016 [facility] [place] 6 15:38:19 Cough 95884561 Completed 201107/09/2014 IMPRESSI ON: FROM URI. SHE REQUESTS COUGH SYRUP; RECORDED 07/04/20 12 1:02PM BY MARIELA DE LA VEGA MA, CHU ON/ADDEN DUM Lillie Garrido, [facility] [address] [address], [place], [address] , [facility] 6 10:43:28 Tobacco dependen ce syndrome 24792200 Completed 201307/09/2014 RECORDED 01/30/20 14 10:26AM BY CHU LOVE ON/ADDEN DUM Lillie Garrido, [facility] [address] [address], [place], [address] , [facility] 6 10:43:27 Elevated blood-pr essure reading without diagnosi s of hyperten zuly 494587193 Completed 201107/09/2014 RECORDED 07/04/20 12 1:02PM BY MARIELA DE LA VEGA MA, CHU ON/ADDEN DUM Lillie Garrido, [facility] [address] [address], [place], [address] , [facility] 6 10:43:28 Family history of ischemic heart disease 397675319 Completed 201207/09/2014 RECORDED 01/03/20 13 2:39PM BY SARAN FERANNDES MA, CHU ON/ADDSUJEY Garrido, [facility] [address] [facility] [address], [place], [address] , [facility] 6 10:43:28 Adult health examinat ion Completed 201207/09/2014 RECORDED 08/14/20 13 10:10AM BY SARAN FERNANDES MA, ANNOTATI ON/ADDEN ASPEN Garrido, [facility] [address] [facility] [address], [place], [address] , [facility] 6 10:43:28 Hyperhid rosis 707722005 Completed 201107/09/2014 RECORDED 07/04/20 12 1:02PM BY MARIELA DE LA VEGA MA, ANNOTATI ON/ADDEN ASPEN Garrido, [facility] [address] [facility] [address], [place], [address] , [facility] 6 10:43:27 Malaise and fatigue 876242633 Completed 201107/09/2014 RECORDED 07/04/20 12 1:03PM BY MARIELA DE LA VEGA MA, ANNOTATI ON/AGUSTIN Garrido, [facility] [address] [facility] [address], [place], [address] , [facility] 6 10:43:27 Acute pain 789172034 Completed 201107/09/2014 RECORDED 07/04/20 12 1:02PM BY MARIELA DE LA VEGA MA, ANNOTATI ON/FERNANDOEN ASPEN Garrido, [facility] [address] [facility] [address], [place], [address] , [facility] 6 10:43:27 Otitis media 92227407 Completed 201107/09/2014 RECORDED 07/04/20 12 1:02PM BY MARIELA DE LA VEGA MA, ANNOTATI ON/FERNANDOEN ASPEN Garrido, [facility] [address], [place], [address] , [facility] 6 10:43:27 Proteinu olayinka 74804044 Completed 201107/09/2014 RECORDED 07/04/20 12 1:03PM BY MARIELA DE LA VEGA MA, ANNOTATI ON/ADDEN ASPEN Garrido, [facility] [address], [place], [address] , [facility] 6 10:43:28 Pain in thoracic spine 486682390 Completed 12/28/2016 Nikole hobbs, [facility] 7 13:18:40 Acute sinusiti s 18721372 Completed 11/03/2016 Nikole hobbs, [facility] 6 15:37:50 Allergic rhinitis 27876245 Completed 11/03/2016 Lillie Garrido, [facility] [address], [place], [address] , [facility] 5 11:30:56 Fatigue 80140944 Completed 11/03/2016 Nikole hobbs, [facility] 6 15:38:22 Insomnia 829210388 Active Not Available [facility] 1 08:45:07 Anxiety 89894979 Active Not Available [facility] 1 08:45:07 Lactic acidosis 11594257 Active Not Available [facility] 1 08:45:07 Acute kidney injury 59417254 Completed 12/28/2016 Nikole hobbs, [facility] 7 13:18:44 Attentio n deficit hyperact ivity disorder , predomin antly inattent tam type 23083139 Active Not Available [facility] 1 08:45:06 Eustachi an tube disorder 96675472 Completed 08/23/2019 HETAL Lynn, [facility] 9 10:26:46 Panic disorder 860364157 Completed 06/19/2020 Kaela Vo PA-C [address] [facility] [address], [place], [address] , [facility] 0 09:41:16 Hematoch ezia 955507912 Active Not Available [facility] 1 08:45:06 Bilatera l hearing loss 37053327 Active Not Available [facility] 1 08:45:07 Red eye Completed 11/03/2016 Nikole hobbs, [facility] 6 15:38:26 Pain in eye 90839919 Completed 11/03/2016 Nikole hobbs, [facility] 6 15:38:09 Obesity 354914222 Active Not Available [facility] 1 08:45:06 Finding of tobacco use and exposure 757872053 Active Not Available [facility] 1 08:45:06 Ulcer of montalvo 281039703 Active Not Available [facility] 1 08:45:07 Peripher al venous insuffic iency 91876366 Active 2019 Not Available [facility] 1 08:45:07 Dysfunct ion of eustachi an tube 52868287 Active 2019 Not Available [facility] 1 08:45:06 Exposure to SARS-CoV -2 Completed 12/12/2020 Removal Reason: Problem added by user madhav de la vega from the COVID-19 watch flag HETAL Lynn, [facility] 1 14:47:30 Asthma 976708138 Active 2021 MANUEL Green [address] [facility] [address], [place], [address] , [facility] 2 15:11:37 Bronchit is 55408397 Active 2021 MANUEL Green [address] [facility] [address], [place], [address] , [facility] 2 15:18:08 Headache 57462976 Active 2021 MANUEL Green [address] [facility] [address], [place], [address] , [facility] 2 15:19:43 Essentia l hyperten zuly 12429959 Active Mariela hunter MA null, [facility] 3 09:34:17 Family history of Cardiova scular disease 655718303 Completed 202212/15/2023 Josue Vo PA-C [address] [facility] [address], [place], [address] , [facility] 4 19:58:03 Vitreous hemorrha ge 55998169 Active 2022 Josue Vo PA-C [address] [facility] [address], [place], [address] , [facility] 3 11:56:58 Age related macular degenera tion 471061404 Active 2022 Josue Vo PA-C [address] [facility] [address], [place], [address] , [facility] 3 11:57:04 Anterior chest wall pain 451530379 Active 2022 MANUEL Green [address] [facility] [address], [place], [address] , [facility] 3 10:47:50 Postconc ussion syndrome 15669751 Active 2023 Josue Vo PA-C [address], [place], [address] , [facility] 4 19:55:49 Age related macular degenera tion 180326770 Completed 202312/15/2023 Josue Vo PA-C [address], [place], [address] , [facility] 4 19:57:27 CT of head abnormal 968350777 Active 2023 Josue Vo PA-C [address], [place], [address] , [facility] 4 12:25:44 History of SARS-CoV -2 60874000577 5401095 Active 2023 Josue Vo PA-C [address], [place], [address] , [facility] 4 15:24:39 Severe recurren t major depressi on without psychoti c features 33887786 Active 2023 Makenna hobbs, [facility] 4 16:32:19 Allergic rhinitis 57082622 Active 2024 Lillie Garrido [facility] [address] [facility] [address], [place], [address] , [facility] 5 11:30:55 Acute pharyngi tis 934951706 Completed 201106/12/2014 RECORDED 07/04/20 12 1:02PM BY MARIELA DE LA VEGA MA, ANNOTATI ON/ADDEN DUM Lillie [facility]arrido [facility] [address] [place] [address] [address], [place], [address] , [facility] 6 10:43:27 Acute sinusiti s 56952154 Completed 201106/12/2014 RECORDED 07/04/20 12 1:03PM BY MARIELA DE LA VEGA MA, ANNOTATI ON/ADDEN DUM Nikole hobbs, [facility] 6 15:37:50 Anxiety disorder 422394241 Completed 201106/12/2014 RECORDED 07/04/20 12 1:02PM BY MARIELAJACOBO DE LA VEGA MA, ANNOTATI ON/ADDEN ASPEN Garrido, [facility] [address] [facility] [address], [place], [address] , [facility] 6 10:43:27 Screenin g for malignan t neoplasm of breast Completed 201106/12/2014 RECORDED 07/04/20 12 1:03PM BY MARIELA DE LA VEGA MA, ANNOTATI ON/ADDEN ASPEN Garrido, [facility] [address] [facility] [address], [place], [address] , [facility] 6 10:43:28 Cellulit is and abscess of hand excludin g digits Completed 201106/12/2014 RECORDED 07/04/20 12 1:03PM BY MARIELA DE LA VEGA MA, ANNOTATI ON/AGUSTIN Garrido, [facility] [address] [facility] [address], [place], [address] , [facility] 6 10:43:27 Disorder of lower limb 628523554 Completed 201106/12/2014 RECORDED 07/04/20 12 1:03PM BY MARIELA DE LA VEGA MA, ANNOTATI ON/ADDSUJEY Garrido, [facility] [address] [facility] [address], [place], [address] , [facility] 6 10:43:28 Cough 13215404 Completed 201106/12/2014 IMPRESSI ON: FROM URI. SHE REQUESTS COUGH SYRUP; RECORDED 07/04/20 12 1:02PM BY MARIELA DE LA VEGA MA, ANNOTATI ON/AGUSTIN Garrido, [facility] [address] [facility] [address], [place], [address] , [facility] 6 10:43:28 Tobacco dependen ce syndrome 62931313 Completed 201306/12/2014 RECORDED 01/30/20 14 10:26AM BY MICHELLE RODGERS I, CHU ON/ADDEN DUM Lillie Garrido, [facility] [address] [facility] [address], [place], [address] , [facility] 6 10:43:27 Tobacco dependen ce syndrome 21666450 Active Not Available [facility] 1 08:45:07 Elevated blood-pr essure reading without diagnosi s of hyperten zuly 274305905 Completed 201106/12/2014 RECORDED 07/04/20 12 1:02PM BY MARIELA DE LA VEGA MA, CHU ON/ADDEN ASPEN Garrido, [facility] [address] [facility] [address], [place], [address] , [facility] 6 10:43:28 Essentia l hyperten zuly 65687831 Completed 08/23/2019 HETAL Lynn, [facility] 3 09:34:17 Essentia l hyperten zuly 54435277 Completed 201206/12/2014 RECORDED 01/28/20 13 10:21AM BY SARAN FERNANDES MA, OFFICE VISIT HETAL Lynn, [facility] 3 09:34:17 Family history of ischemic heart disease 200512030 Completed 201206/12/2014 RECORDED 01/03/20 13 2:39PM BY SARAN FERNANDES MA, CHU ON/ADDEN ASPEN Garrido, [facility] [address] [facility] [address], [place], [address] , [facility] 6 10:43:28 Adult health examinat ion Completed 201206/12/2014 RECORDED 08/14/20 13 10:10AM BY SARAN FERNANDES MA, CHU ON/ADDEN DUM Lillie Garrido, [facility] [address] [facility] [address], [place], [address] , [facility] 6 10:43:28 Hyperhid rosis 268905627 Completed 201106/12/2014 RECORDED 07/04/20 12 1:02PM BY MARIELA DE LA VEGA MA, ANNOTATI ON/ADDEN DUM Lillie Garrido, [facility] [address] [facility] [address], [place], [address] , [facility] 6 10:43:27 Displace ment of interver tebral disc without myelopat hy 11224355 Active Not Available [facility] 1 08:45:06 Pure hypercho lesterol emia 730225895 Active Not Available [facility] 1 08:45:06 Hyperlip idemia 22038199 Active Not Available [facility] 1 08:45:07 Impaired fasting glycemia 035537990 Active Not Available [facility] 1 08:45:06 Displace ment of lumbar interver tebral disc without myelopat hy 84544867 Active Not Available [facility] 1 08:45:07 Lyme disease 75535189 Active Not Available [facility] 1 08:45:06 Malaise and fatigue 386932726 Completed 201106/12/2014 RECORDED 07/04/20 12 1:03PM BY MARIELA DE LA VEGA MA, CHU ON/ADDEN ASPEN Garrido, [facility] [address] [facility] [address], [place], [address] , [facility] 6 10:43:27 Acute pain 695983790 Completed 201106/12/2014 RECORDED 07/04/20 12 1:02PM BY MARIELA DE LA VEGA MA, CHU ON/ADDSUJEY Garrido, [facility] [address] [facility] [address], [place], [address] , [facility] 6 10:43:27 Otitis media 06429235 Completed 201106/12/2014 RECORDED 07/04/20 12 1:02PM BY MARIELA DE LA VEGA MA, CHU ON/ADDSUJEY Garrido, [facility] [address] [facility] [address], [place], [address] , [facility] 6 10:43:27 Panic disorder without agorapho neo 29980450 Active Not Available [facility] 1 08:45:06 Proteinu olayinka 83293656 Completed 201106/12/2014 RECORDED 07/04/20 12 1:03PM BY MARIELA DE LA VEGA MA, ANNOTATI ON/AGUSTIN Garrido, [facility] [address] [facility] [address], [place], [address] , [facility] 6 10:43:28 Thyrotox icosis 77729892 Active Not Available [facility] 1 08:45:06 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 Procedures Surgical [...] Laura Weiss [facility] 04/04/2024 08:34:39 06/18/20 21 Date of Last Colonoscopy completed Malena Quinteros [facility] 06/20/2021 14:47:59 06/18/20 21 Colonoscopy completed Malena Quinteros [facility] 06/20/2021 14:48:13 01/03/20 20 Mammogram screening completed Ruma Davi [facility] 01/03/2020 16:08:31 06/29/19 98 tympanostomy completed Mariela walters MA [facility] 08/23/2019 10:36:38 11/29/18 87 Appendectomy completed Mariela walters MA [facility] 07/11/2014 08:52:32 Imaging Results Imaging Date Name Status LastModified by Mya ceja Details LastModified Time 04/26/2024 CT chest ldct lung program baseline completed [facility] ([facility]) [address] [place] [address], [address], 05/10/2024 08:45:48 07/11/2024 XR, chest, 2 view completed [facility] ([facility]) [address] [place] [address], [address], 07/25/2024 09:07:28 Procedure Notes None recorded. Medical Equipment None Reported. Allergies Allergen ID Allergen Name Allergen Category Reaction Reaction Severity Criticality Documentation Date Start Date Code Code System Note Provider Name and Address Organization Details Recorded Time 65103 Bactrim medicatio n myalgias (muscle pain) Not available Not available 01/22/2020 77458 9 RxNorm Josue Vo PA-C [address] [facility] [address], [place], [address], [facility] 0 11:10:56 5343 Augmentin medicatio n Not available Not available Not available 06/12/20142009 12951 2 RxNorm dehyd ratio n, ketoa cidos is -- hospi taliz ed x 3 days -- has vee ated amox her whole life Not Available [facility] 08:45:07 Medications Name Sig Start Date Stop Date Status Note LastModified by Organization Details LastModified Time Prescript ion - Prior Demetraa mohan Request 04/28 completed Not Available Not Available [...] 3:07PM BY LUIS ANGEL VASQUEZ MD, ANNOTATI ON/ADDEN DUM; Not Available Not Available Not Available Medrol [...] 02/09 completed RECORDED 02/15/20 10 1:34PM BY RUSSELL FERNANDES PA-C, MEDICATI ON AUTO-CHRIS CTIVATIO N; Not Available [...] and Address Organization Details Last Updated DateTime 4 157.48 cm 28.9 kg/m2 17395.5 9 g 81 /min 96 % 96 % 98.2 [degF] 125 mm[Hg] 85 mm[Hg] Isabel Rosas MA [facility] 4 10:44:09 Date Recorded Body height Provider Name an d Address Organization Details Last Updated DateTime 07/11/2024 157.48 cm Isabel Rosas MA [facility] 07/11/2024 13:59:37 Date Recorded Body height Body mass index (BMI) Body weight Oxygen saturation Oxygen saturation in Arterial blood by Pulse oximetry Heart rate Body temperature Systolic blood pressure Diastolic blood pressure Provider Name and Address Organization Details Last Updated DateTime 4 157.48 cm 27.4 kg/m2 36227.8 6 g 97 % 97 % 82 /min 98 [degF] 119 mm[Hg] 79 mm[Hg] Lorena Gutierrez MA [facility] 4 13:28:48 Date Recorded Body height Provider Name an d Address Organization Details Last Updated DateTime 10/05/2024 157.48 cm Isabel Rosas MA [facility] 10/05/2024 14:51:51 Date Recorded Body height Body mass index (BMI) Body weight Heart rate Oxygen saturation Oxygen saturation in Arterial blood by Pulse oximetry Body temperature Systolic blood pressure Diastolic blood pressure Provider Name and Address Organization Details Last Updated DateTime 5 157.48 cm 27.8 kg/m2 54611.0 4 g 76 /min 96 % 96 % 97.8 [degF] 127 mm[Hg] 80 mm[Hg] Bri vaz [facility] 5 13:11:44 Social History Question Answer Notes LastModified by Organizat ion Details LastModified Time Tobacco Smoking Status Current Every Day Smoker has tried nicotine gum in past HETAL Akhtar [facility] 08/23/2019 10:35:01 Do You [...] not available 08/23/2019 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 With Others Daughter (Justyna) mdalessandro Information not available 01/27/2016 Do You Take [...] How Many Children Do You Have? 2 Alvin Information not available 04/28/2018 What Is Your [...] Not available 17:02:06 Medical History Condition Response Depression Y Anxiety Disorder Y High Cholesterol Y Hypertension Y Gynecological History Statement/Question Response Date of Last Pap Smear 04/15/2023 Date of Last Colonoscopy 06/18/2021 Most Recent Mammogram 01/28/2024 Obstetrics History GPAL:G 0 P 0 0 0 0 Immunizations Vaccine Type Date Status Note Provider Name and Address Organization Details Recorded Time COVID-19, mRNA, LNP-S, PF, 100 mcg/0.5mL dose or 50 mcg/0.25mL dose 05/07/20 completed Sonja Harrell MA [facility] [place] 08/18/2022 10:30:17 COVID-19, mRNA, LNP-S, PF, 100 mcg/0.5mL dose or 50 mcg/0.25mL dose 04/07/20 21 completed HETAL Sun [facility] [place] 08/18/2022 10:30:17 COVID-19, mRNA, LNP-S, PF, 100 mcg/0.5mL dose or 50 mcg/0.25mL dose 04/07/20 21 completed HETAL Eugene, [facility] 11/10/2022 13:08:16 Tdap 05/30/20 18 completed HETAL Sun, [facility] 08/18/2022 10:30:17 Influenza, split virus, quadrivalent, PF [...] quadrivalent, PF 02/13/20 21 cancelled patient objection Josue Vo PA-C [address] [address], [place], [address], [facility] 02/12/2021 16:19:58 Past Encounters Encounter ID Performer Location Encounter Start Date Encounter Closed Date Diagnosis/Indication Diagnosis SNOMED-CT Code Diagnosis ICD10 Code Diagnosis Note [id number] autoEComm erce [address] [facility] [place] [address] 06/28/2007 00:00:00 [id number] autoEComm erce [address] [facility] [place] [address] 08/11/2007 00:00:00 [id number] autoEComm erce [address] [facility] [place] [address] 02/09/2008 00:00:00 [id number] autoEComm erce [address] [facility] [place] [address] 03/14/2008 00:00:00 [id number] autoEComm erce [address] [place] [address] 07/03/2008 00:00:00 [id number] auto[facility] erce [address] [place] [address] 12/03/2008 00:00:00 [id number] autoEComm erce [address] [facility] [address] [place] [address] 06/10/2009 00:00:00 [id number] autoEComm erce [address] [place] [address] 06/14/2009 00:00:00 [id number] autoEComm erce [address] [facility] [address] [place] [address] 06/24/2009 00:00:00 [id number] autoEComm erce [address] [facility] [place] [address] 01/10/2010 00:00:00 [id number] autoEComm erce [address] [facility] [place] [address] 01/15/2010 00:00:00 [id number] autoEComm erce [address] [facility] [place] [address] 03/03/2010 00:00:00 [id number] autoEComm erce [address] [facility] [place] [address] 04/14/2010 00:00:00 [id number] autoEComm erce [address] [facility] [place] [address] 05/02/2010 00:00:00 [id number] autoEComm erce [address] [facility] [place] [address] 07/21/2010 00:00:00 [id number] autoEComm erce [address] [facility] [place] [address] 10/31/2010 00:00:00 [id number] autoEComm erce [address] [facility] [place] [address] 02/07/2011 00:00:00 [id number] autoEComm erce [address] [place] [address] 09/10/2011 00:00:00 [id number] autoEComm erce [address] [place] [address] 02/18/2012 00:00:00 [id number] autoEComm erce [address] [facility] [place] [address] 04/19/2012 00:00:00 [id number] autoEComm erce [address] [facility] [place] [address] 07/04/2012 00:00:00 [id number] autoEComm erce [address] [facility] [place] [address] 07/12/2012 00:00:00 [id number] autoEComm erce [address] [facility] [place] [address] 01/03/2013 00:00:00 [id number] autoEComm erce [address] [facility] [place] [address] 01/27/2013 00:00:00 [id number] autoEComm erce [address] [facility] [place] [address] 08/14/2013 00:00:00 [id number] autoEComm erce [address] [facility] [place] [address] 01/29/2014 00:00:00 [id number] autoEComm erce [address] [facility] [place] [address] 04/24/2014 00:00:00 [id number] Nikole Velasquez MA Main Office [address] [facility] [address] [place] [address] 07/11/2014 09:29:53 07/11/2014 10:00:49 Tobacco dependence syndrome 64861435 Acute sinusitis 83347914 Allergic rhinitis 05502634 [id number] Main Office [address] [facility] [address] [place], [place] [address] 07/31/2014 14:21:50 07/31/2014 15:00:31 Fatigue 23892023 pt i9s stressed, will use xanax prn and check labs Insomnia 674695342 will use xanax if cannot sleep Anxiety 74032402 Essential hypertension 01424580 BP is up, will not increase dose due to stress will check labs and see pt in followup Pure hypercholesterolemia 556591113 back on med, recheck fasting [id number] Nikole Velasquez MA Main Office [address] [address] [place] [address] 11/07/2014 10:38:03 11/07/2014 11:03:42 Acute sinusitis 57541526 Patiet states she got diarrhea with augmentin and requested levaquin but there is a serious interactio n between levaquin and citalopram . She will try augmentin again with food x 10 days, she will call if she cannot tolerate it. Use himidifier at night, continue flonase loratadine daily, stay well hydrated. [id number] Main Office [address] [address] [place] [address] 11/14/2014 09:50:03 11/14/2014 10:27:41 Lactic acidosis 74027396 secondary to dehydratio n, resolved, all labs normalized prior to discharge Essential hypertension 84748531 anti-hyper tensive discontinu ed during hospitaliz ation, pt to continue monitoring /recording BP and will keep FU appt in a week Acute kidney injury 36069934 secondary to dehydratio n, resolved [id number] Main Office [address] [address] [place] [address] 04/15/2015 14:13:38 04/15/2015 14:55:28 Essential hypertension 15869856 Hyperlipidemia 42132437 Impaired f asting glycemia 604303780 Single jordon or depressive episode 940827589 [facility]/ pt is on Abilify 2mg and citalopram 20 Attention deficit hyperactivity disorder, predominantly inattentive type 48742758 pt sees [facility]/Lou Galeana does scrips for Ritalin Body mass index 30+ - obesity 500720839 [id number] Luis Angel encarnacion Main Office [address] [address] [place] [address] 01/27/2016 14:01:13 01/27/2016 15:12:25 Benign essential hypertension 7653044 I10 continue current meds Eustachian tube disorder 06520409 H69.93 Panic disorder 928232775 F41.0 Hematochezia 111819752 K 62.5 [id number] Luis Angel encarnacion Main Office [address] [facility] [address] [place] [address] 02/27/2016 10:27:01 02/27/2016 11:41:49 Red eye 55059514 H11.439 Pain in eye 28200317 H57 .12 Apparent subconjuct ival hemorrhage without known trigger, no hx of injury or trauma, + discomfort but patient also has pain with direct and consensual light reflex, VA 20/30 left eye, negative fluorescei n stain, will refer to opthalmolo gy for further eval today* Will be seen by Dr. Khanna at 1 pm today. [id number] Main Office [address] [address] [place] [address] 10/26/2016 15:47:03 10/27/2016 14:03:03 Lumbago with sciatica 125465917 M54.42 Most likely combinatio n of lumbar disc disease exacerbate d by overuse. Start Ibuprofen 600 mg QID with food. Add muscle relaxants and Tramadol for breakthrou gh pains. If not better in 5 days, pt. will take Medrol dose pack. MRI to be scheduled. PT. to be considered after acute pain subsides. Neoplasm of liver 349319 005 C22.0 schedule GI cynthia. for akiko pittman. [id number] Luis Angel encarnacion Main Office [address] [address] [place] [address] 11/03/2016 15:07:53 11/03/2016 16:26:44 Leukocytosis 584686850 D72.829 resolved issue Single jordon or depressive episode 928939481 F32.9 pt on citalopram 30 mg [id number] Luis Angel encarnacion Main Office [address] [address] [place] [address] 12/08/2016 15:02:56 12/08/2016 16:17:54 Congestion of nasal sinus 15414923 R09.81 pt reluctant to take abx d/t problem c augmentin (she declined doxycyclin e), offered re-assuran ce no evidence of L OM - most likely eustachian tube dysfxn, ? early sinus infxn Otalgia 71368141 H92.02 see above 25 minute office visit with greater than 50% of the visit face-to-fa ce with the patient and/or family providing counseling and/or coordinati on of care. [id number] Nikole Velasquez MA Main Office [address] [address] [place] [address] 12/28/2016 13:12:09 12/28/2016 14:17:41 Adult health examination 938449860 Z00.00 Panic diso rder without agoraphobia 51914874 F41.0 Essential hypertension 34202065 I10 Tobacco de pendence syndrome 13360180 F17.290 pt has quit in past./ 10 cigs/day Influenza vaccine needed 3771264875 106 Z23 [id number] Makenna Gaston Main Office [address] [address] [place] [address] 06/17/2017 14:28:04 06/17/2017 16:00:22 Cough 02249837 R05 will check cxr to r/o pna - rx c abx if + Tobacco de pendence syndrome 22404225 F17.200 Eustachian tube disorder 48114198 H69.93 Allergic rhinitis 414994 04 J30.9 Otitis externa 4884361 H 60.91 mild x 24 hours - she will call if worse - consider topical abx - avoid topical steroid d/t tube in R ear [id number] Luis Angel encarnacion Main Office [address] [address] [place] [address] 07/08/2017 14:43:26 07/08/2017 16:21:32 Depressive disorder 50322985 F32.9 ongoing therapis Anxiety 62360831 F41.9 Essential hypertension 53325473 I10 Fatigue 67465004 R53.83 [id number] Luis Angel encarnacion Main Office [address] [address] [place] [address] 07/16/2017 10:41:30 07/16/2017 11:49:41 Pneumonia 472906843 J18.9 Coughing, chest tightness and sx since before 7/20, will tx with abx, prednisone , continue inhaler as directed. stop smoking Tight chest 53886382 R07 .89 will check EKG, she does have family hx. EKG normal. [id number] Luis Angel encarnacion Main Office [address] [facility] [address] [place] [address] 09/20/2017 10:50:24 09/20/2017 11:37:21 Essential hypertension 41433178 I10 Single jordon or depressive episode 173219751 F32.1 pt on citalopram 30 mg Anxiety 38193131 F41.9 Stasis dermatitis 628897 05 I87.2 Herpes labialis 6428936 B00.1 [id number] Fritz Weston MD Main Office [address] [facility] [address] [place] [address] 04/28/2018 15:24:24 04/28/2018 16:06:23 Essential hypertension 41407146 I10 will resume her old dose of med (has been off bp meds x few mos), has f/u already scheduled c PCP for PE in 4-5 wks Easy bruising 448902415 R58 ? etiology of bruising a few days ago - will check plt ct and inr, ? contributi ng to her h/o poor wound healing as well - see below Thyrotoxicosis 57583194 E05.90 Skin lesion 33382326 L98 .9 on inner aspect of left breast - h/o poor wound healing - was stung by bee on this location ~ 6 months ago, no s/s of infection -- rec stop peroxide, cont neosporin/ bandaid -- has PE c PCP in near future - if persists,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 and fear of covid19 - has declined benzos for this in past - not used her xanax in many months out of fear of being too sedated to respond to her dtr if she needs help in the middle of the night, she reserves this for prn panic attack (none lately) 5.24 - stable lately, cont med as dir, rare use of prn benzo 8.24 - severe on joao & phq - but is essentiall y unfortunat royal her baseline in comparison to prior scores - cont seeing therapist q wksee below History of SARS-CoV-2 29 01585466 49945631 Z86.16 last month - long covid sxs persist - brain fog/confus ion, fatigue, etcrec vit d, turmeric to help immune system/inf lammationr tc in 2 days - check 6cit & joao/phq 8.15.24 - see above - no need for vit d since level okaybut rec take turmeric, rec walking in nature/hik ing, mindfulnes s, and address psychologi wei/mental health (see above) Pure hypercholesterolemia 524256440 E78.00 cont statin as dir x past few months, recheck lipids 8.24 - pt requests refill Attention deficit hyperactivity disorder, 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 pt used stimulant for a few months in winter/spr ing - has not needed it for a few months - feels well without it, focus/ener gy have been good rdddex17.2 3 - has not used stimulant all summer, but states has rough time at this time of year - SAD & Deloris has had grand mal sz's lately - so requests refill of stimulant 8.24 - pt requests refill 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 Continue to stay well hydrated. [id number] Makenna Gaston Main Office [address] [facility] [address] [place] [address] 01/10/2025 12:58:33 01/10/2025 13:35:44 Acute conjunctivitis 74082687 H10.30 -Will send ming alvarado script cancelled. -Warm compress advised.-A dvised regular follow up with optho. Pterygium of right eye 9046614001 65103 H11.001 Advised regular follow up with optho. Subconjunc tival hemorrhage of right eye 7167519508 35743 H11.31 Avoid anything that increases pressure. Health Concerns Section Related Observation LastModified by Organization Detai ls LastModified Time None Recorded Concern Status LastModified by Organization Details LastModified Time None Recorded Advance Directives Directive N: Payers Encounter Date Sequence Insurance Name Policy Number Policy Jeffrey Covered Member ID Jeffrey Member ID Guarantor Name 04/03/2024 1 [place] Lia T Battles [id number] Lia Battles 07/11/2024 1 [place] Lia T Battles [id number] Lia Battles 07/13/2024 1 [place] Lia T Battles [id number] Lia Battles 10/05/2024 1 [place] Lia T Battles [id number] Lia Battles 01/10/2025 1 [place] Lia T Battles [id number] Lia Battles Notes Date Note Type Note Provider Name and Address Organization Details Recorded Time 04/03/2024 text/html here for annual pe. Josue Vo PA-C [address] [address], [place], [address], [facility] 04/03/2024 11:34:33 07/11/2024 text/html TH for f/u visit pt states had covid last month - did not have o.v. - sxs persist - only 50-60% better, but getting better past 2 daysrare cough, sobmore so has c/o brain fog, fatigue, somewhat worse confusion and depression Josue Vo PA-C [address] [facility] [address], [place], [address], [facility] 07/11/2024 15:25:10 07/13/2024 text/html Pt is having confusion,fatigue, anxiety since having June 05 has been covid negative since the 10 of June. rev last notehad negative cxr and labsno sob, cough, cp, f/c [facility] 08/04/2024 16:33:18 07/13/2024 text/html Anxiety/Depressi on Reported bypatient.Quality: increased anxiety Severity:denies suicidal ideations Context:major life stressors;family problems Associated Symptoms:denies homicidal ideations Makenna hobbs [facility] 08/04/2024 16:33:18 10/05/2024 text/html Having congestio n, cough and sinus pain/pressure. Tested twice in the last few days and both negative. Also with fatigue. Taking shallow breaths to prevent coughing. Using saline, flonase and claritin for 5 days w/o much help. No f/c. Loss of appetite. Her daughter has been sick with similar symptoms and is currently taking an abx. Ryley Jang MD [address] [address], [place], [address], [facility] 10/05/2024 15:20:10 01/10/2025 text/html Red EyeReported bypatient.Location :right Quality:itching Duration:3 days ago Onset/Timing:first episode Associated Symptoms:normal vision; no sensitivity to light; no eye pain; no foreign body sensation in eyes; no mucopurulent discharge;watery discharge from the eyes Makenna hobbs [facility] 01/22/2025 14:33:50 OBGyn Episode No OBEpisode recorded.
--- OUTSIDE RECORDS SUMMARY | 2025-02-01 14:55 | XMS_ITS | Clinical Summary ---
Author Organization [facility] Address [address] [place] [address] Care Team Providers Care Guest Relations Associate Name Role Phone Asya Mercer MD Primary Care Provider Surgical History Surgery Date Site/Laterality Comments APPENDECTOMY PROCEDURE: MS APPENDECTOMY Social History Tobacco Use Types Packs/Day Years Used Date Smoking Tobacco: Former Smokeless Tobacco: Never Alcohol Use Standard Drinks/Week Comments Yes 0 (1 standard drink = 0.6 oz pur e alcohol) Comments Unknown Sex and Gender Information Value Date Recorded Sex Assigned at Not on file Legal Sex Female 10:51 AM EST Gender Identity Not on file Sexual Orientation Not on file Obstetrics History Last Filed Vital Signs Vital Sign Reading Time Taken Comments Blood Pressure 133/93 04/09/2023 11:31 AM EDT Pulse 76 04/09/2023 11:31 AM EDT Temperature - - Respiratory Rate - - Oxygen Saturation - - Inhaled Oxygen Concentration - - Weight 74.8 kg (165 lb) 04/09/2023 11:31 AM EDT Height 154.9 cm (5' 1 ) 04/09/2023 11:31 AM EDT Body Mass Index 31.18 04/09/2023 11:31 AM EDT Plan of Treatment Upcoming Encounters Date Type Department Care Team (Late st Contact Info) Description 02/27/2025 11:30 AM EDT Office Visit Obstetrics and Gynecology - [address] [place] [id number] Anton Robert CNM [address] [place] [address] Health Maintenance Due Date Last Done Comments Breast Cancer Screening 1961 DTaP,Tdap,and Td Vaccines (1 - Tdap) 1980 Pneumococcal Vaccine: 50+ Ye ars (1 of 1 - PCV) 2011 Zoster Vaccines (1 of 2) 2011 Colorectal Cancer Screening: Colonoscopy 2024 Depression Screening 2024 HIV Screening 2024 Hepatitis C Screening 2024 Social Influencers of Health Screening 2024 COVID-19 Vaccine (1 - 2023-2 5 season) 2024 Influenza Vaccine (#1) 2024 Cervical Cancer Screening: HPV 04/09/2028 04/09/2023 RSV Immunization Patients 60 + Years Old (1 - 1-dose 75+ series) 2036 HIB Vaccines Aged Out No longer eligi ble based on patient's age to complete this topic HPV Vaccines Aged Out No longer eligi ble based on patient's age to complete this topic Hepatitis A Vaccines Aged Out No long er eligible based on patient's age to complete this topic Hepatitis B Vaccines Aged Out No long er eligible based on patient's age to complete this topic IPV Vaccines Aged Out No longer eligi ble based on patient's age to complete this topic MMR Vaccines Aged Out No longer eligi ble based on patient's age to complete this topic Meningococcal ACWY Vaccine Aged Out N o longer eligible based on patient's age to complete this topic Meningococcal B Vacine Aged Out No lo nger eligible based on patient's age to complete this topic Pneumococcal Vaccine: Pediat rics (0 to 5 Years) and At-Risk Patients (6 to 64 Years) Aged Out No longer eligi ble based on patient's age to complete this topic RSV Immunization Patients Un mirela 20 months Aged Out No longer eligible b ased on patient's age to complete this topic Varicella Vaccines Aged Out No longer eligible based on patient's age to complete this topic Procedures Procedure Name Priority Date/Time Associated Diagnosis Comments HPV Routine 04/09/2023 from Last 3 Months or Most Recently Relevant to Health Maintenance Results * Cervical Cancer Screening: HPV (04/09/2023) Cervical Cancer Screening: HPV negative abstracted us Historical Provider HEALTH MAINTENANCE Final Result from Last 3 Months or Most Recently Relevant to Health Maintenance Care Teams Guest Relations Associate Relationship Specialty Start Date End Date Asya Mercer MD [address] [place] [address] PCP - General Internal Medicine 12/04/24
== END 2025-02-01 12:25 | disposition home or self-care (01) ==
LOC: HO.MAMMO 12:24
PROVIDERS: PCP Physician Assistant Medical; Visit Provider Internal Medicine
DX: Z12.31 Encounter for screening mammogram for malignant neoplasm of breast (principal)
CPT/HCPCS: 77063; 77067

== ENCOUNTER → 2025-02-01 12:30 | Outpatient (BNV) | payer MEDICAID, SELFPAY | PROVIDERS: PCP Physician Assistant Medical; Visit Provider Internal Medicine | DX: Z12.31 Encounter for screening mammogram for malignant neoplasm of breast (principal) | CPT/HCPCS: 77063; 77067 ==